=== PATIENT | male | born 1965 | race Caucasian/White ===

== ENCOUNTER 2016-09-15 19:30 | Emergency (ER) | payer OTHER ==
[~2016-09-15] VITALS: Ht 182.9 cm; Wt 97.7 kg
[~2016-09-15 19:30] MED LIST: ACET325T51 PO; CHOL10008 PO; CYAN500T53 SL; DEX1 PO; DOCU250C2 PO; LACT1CAP65 PO; LISI1TAB9 PO; METF500T4 PO; MULT-1018 PO; ONDA-53 PO; PANT40TA3 PO; SERT50TA PO; SULF1TAB7 PO; [UNRECOGNIZED DRUG - CODE] PO
[2016-09-15 19:46] VITALS: BP 149/87; PULSE 79; RESP 17; O2SAT 96
--- NOTE | 2016-09-15 20:03 | ED.REPORT ---
HPI-General Illness Date of Service Sep 15, 2016 ED Provider: Dr. Gordon Pt is a 51 y/o male w/ a hx of glioblastoma multiforme on chemo, DM, HTN, presenting to the ED with his c/o ongoing nausea and vomiting due to chemotherapy. The patient underwent a round of chemo August 24- and since then has been experiencing nausea and vomiting. His only request today is that we can give him some IV fluids today to combat his dehydration. He is scheduled for another MRI in the near future to assess disease progression. He has no other symptoms or new neurological deficits at this time. Oncologist: Sachin Nursing Notes Stated Complaint: DEHYDRATED FROM CHEMO Chief Complaint: General Complaint Nursing Notes Reviewed: Yes Allergies: Coded Allergies: No Known Allergies (Unverified , 05/11/16) Scheduled Cholecalciferol (Vitamin D3) (Vitamin D3) 1,000 Unit Tab.chew 1,000 UNIT PO DAILY Cyanocobalamin (Vitamin B-12) (Vitamin B-12) 500 Mcg Tab.subl 500 MCG SL DAILY Dexamethasone (Dexamethasone) 1 Mg Tab 2 MG PO BID Lactobacillus Acidophilus (Probiotic) 1 Each Capsule 1 EACH PO DAILY Lisinopril / HCTZ 20-12.5 mg (Lisinopril / HCTZ 20-12.5 mg) 1 Each Tablet 1 EACH PO DAILY Metformin (Metformin) 500 Mg Tablet 500 MG PO DAILY Multivitamin (Multi Vitamin Daily) 1 Each Tablet 1 EACH PO DAILY Ondansetron (Ondansetron) 4 Mg Tablet 4 MG PO q4hrs prn Pantoprazole DR (Pantoprazole DR) 40 Mg Tablet.dr 40 MG PO DAILY Sertraline HCl (Zoloft) 50 Mg Tablet 50 MG PO DAILY Sulfamethoxazole/Trimeth 800-160 mg (Bactrim DS) 1 Each Tablet 1 TABLET PO DAILY Temozolomide (Temodar) 100 Mg Capsule 350 MG PO QD DYS [id number] Scheduled PRN Acetaminophen (Acetaminophen) 325 Mg Tablet 650 MG PO Q4H PRN PRN For Pain Docusate Sodium (Docusate Sodium) 250 Mg Capsule 250 MG PO DAILY PRN PRN For Constipation General Time Seen by MD: 20:02 Chief Complaint Vomiting Hx Obtained From: Patient Arrived By: Walk-in Sudden in Onset?: No Onset Occurred: More than a week ago... 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 He has three grown up children, two daughters and one son between ages 22 and 28. Alcohol Use: Denies alcohol use Drug Use: Denies drug use Other Social History: Ambulatory Status Independent Review of Systems Full Review of Systems Constitutional: Denies: Chills, Fever Respiratory: Denies: Non-productive cough, Shortness of breath Cardiovascular: Denies: Chest pain, Dyspnea on exertion GI: Reports: Nausea, Vomiting, Denies: Abdominal pain Complete sys rev & neg: except as marked. Physical Exam Vital Signs Vital Signs Date Time Temp Pulse Resp B/P Pulse Ox O2 Delivery O2 Flow Rate FiO2 09/15/16 22:05 36.9 87 16 159/91 97 Room Air 09/15/16 19:46 36.7 79 17 149/87 96 Room Air Initial VS: Reviewed, Vital signs normal Head / Eyes: Atraumatic, Normocephalic, PERRL ENT: Conjunctiva normal, No scleral icterus Neck: Supple, Full range of motion Respiratory: Breath sounds normal, Clear to auscultation, No respiratory distress Cardiovascular: Regular rate & rhythm, Heart sounds normal, Intact distal pulses Abdomen / GI: Soft, Non-tender Extremities: Vascular intact, Neuro intact, No swelling Skin: Warm, Dry, No cyanosis Neurologic: Alert, Oriented, Nonfocal Psychiatric: Mood/affect normal, Behavior normal, Normal thought content General/Constitutional: Awake, Alert, No acute distress, Cooperative, Not toxic appearing Distress / Hydration: Positive: Dehydration mild ENT: Atraumatic, Airway patent Mouth: Positive: Mucous membranes dry Interpretation & Diagnostics Lab Results Interpretation Test 09/15/16 20:20 Hold Purple Top Tube Received (Received) Hold Bovina Top Tube Received (Received) Re-Eval/Medical Decision Med Decision/Clinical Course 51-year-old male history of clear last normal deformity on chemotherapy presenting with nausea vomiting requesting hydration. He does not want any labs or other workup. He was given 2 L normal saline and Zofran and felt much better. He still declines any labs or further workup. He has a repeat MRI scheduled for Wednesday to evaluate the progress of his glioblastoma multiforme. They are considering continuing chemotherapy and other interventions. Counseled him extensively that there may be other causes for his nausea and vomiting but he does not want any further workup on this time. He will return immediately should he change his mind on this issue. Time of Eval: 20:22 Re-Evaluation/Progress Note: Declining labs at this time. Time of Eval: 21:25 Re-Evaluation/Progress Note: Pt rechecked. Feeling better. Still declining labs. Time of Eval: 21:58 Re-Evaluation/Progress Note: Pt rechecked. Informed pt of plan for discharge. Pt understands and agrees with plan for discharge. F/U instructions and RTER warnings given. All questions addressed. Counseled Regarding: Diagnosis, Lab results, Need for follow-up, When/why to return to ED Discharge & Departure Primary Impression: Nausea and vomiting Vomiting type: unspecified Vomiting Intractability: non-intractable Qualified Code: R11.2 - Nausea with vomiting, unspecified Additional Impression: Dehydration Disposition: Home Discharge Condition All VS Reviewed: Yes Condition: Stable Patient Instructions: Acute Nausea and Vomiting (ED), Dehydration (ED) Additional Instructions: You were given IV fluids and Zofran today for your dehydration. You declined labs today. Keep the scheduled MRI. Return to the emergency department if you wish to have further evaluation or you experience new or worsening symptoms. Follow-up with your primary care doctor and oncologist later this week or early next week. Referrals: Rio Harrison MD (PCP) Fili Rice MD Attestation Portions of this note were transcribed by David Christine. I, Dr. Gordon personally performed the history, physical exam and medical decision-making; I reviewed and confirmed the accuracy of the information in the transcribed note. Signed by Samantha Schwartz, 09/15/16 - 2099 copies to: Fili Rice MD; Rio Harrison MD, Ben M MD Sep 15, 2016 20:03 DAVID CHRISTINE Sep 15, 2016 20:18
[2016-09-15] MEDS ORDERED: 0.9% Sodium Chloride 1,000 ML IV ONE ×2 (20:20→21:15)
[2016-09-15] MEDS: Ondansetron 2 mg/mL 2 mL Inj IVPUSH PRN ×2 (20:28→20:55)
[2016-09-15 22:05] VITALS: BP 159/91; PULSE 87; RESP 16; O2SAT 97
== END 2016-09-15 22:06 | disposition home or self-care (01) ==
LOC: SED 19:30
DX: R11.2 Nausea with vomiting, unspecified (principal); E86.0 Dehydration; I10 Essential (primary) hypertension; E11.9 Type 2 diabetes mellitus without complications; Z85.841 Personal history of malignant neoplasm of brain; Z92.21 Personal history of antineoplastic chemotherapy
CPT/HCPCS: 96361; 96374; 99284; J2405; J7030

== ENCOUNTER 2016-09-22 10:22 | Inpatient (IN) | payer OTHER ==
[~2016-09-22] VITALS: Ht 182.9 cm; Wt 96.4 kg
[2016-09-22 10:29] VITALS: BP 164/96; PULSE 80; RESP 16; O2SAT 95
--- NOTE | 2016-09-22 10:29 | ED.REPORT ---
HPI-General Illness Date of Service Sep 22, 2016 ED Provider: Kyle Laboy Patient is a 51 year old male with a recently diagnosed glioblastoma multiforme , HTN, and DM who presents to the ED via EMS for altered mental status onset a week ago. Per , associated symptoms include frequent falls, increased weakness, trouble speaking, headaches, and increased confusion. He has been nauseous and dry heaving more lately. Per , eh is not experiencing fever, cough, or any other symptoms. He mostly answers yes or no and does not follow commands except to open his eyes. He takes Lisinopril, Dexamethasone (4mg) and metformin daily. He has been taking antibiotics since April when he started radiation therapy. He does 5 days on and 23 days off of Temodar. His last dose was the 28 of August. Patient has been given Tylenol for headaches. Patient's dose of sertraline was increased on the 28 of August. Nursing Notes Stated Complaint: INCREASED CONFUSION/MULTIPLE FALLS Chief Complaint: Neuro Symptoms/ Deficits Nursing Notes Reviewed: Yes Allergies: Coded Allergies: No Known Allergies (Unverified , 05/11/16) Scheduled Cholecalciferol (Vitamin D3) (Vitamin D3) 1,000 Unit Tab.chew 1,000 UNIT PO DAILY Cyanocobalamin (Vitamin B-12) (Vitamin B-12) 500 Mcg Tab.subl 500 MCG SL DAILY Dexamethasone (Dexamethasone) 1 Mg Tab 2 MG PO BID Lactobacillus Acidophilus (Probiotic) 1 Each Capsule 1 EACH PO DAILY Lisinopril / HCTZ 20-12.5 mg (Lisinopril / HCTZ 20-12.5 mg) 1 Each Tablet 1 EACH PO DAILY Metformin (Metformin) 500 Mg Tablet 500 MG PO DAILY Multivitamin (Multi Vitamin Daily) 1 Each Tablet 1 EACH PO DAILY Ondansetron (Ondansetron) 4 Mg Tablet 4 MG PO q4hrs prn Pantoprazole DR (Pantoprazole DR) 40 Mg Tablet.dr 40 MG PO DAILY Sertraline HCl (Zoloft) 50 Mg Tablet 50 MG PO DAILY Sulfamethoxazole/Trimeth 800-160 mg (Bactrim DS) 1 Each Tablet 1 TABLET PO DAILY Temozolomide (Temodar) 100 Mg Capsule 350 MG PO QD DYS [id number] Scheduled PRN Acetaminophen (Acetaminophen) 325 Mg Tablet 650 MG PO Q4H PRN PRN For Pain Docusate Sodium (Docusate Sodium) 250 Mg Capsule 250 MG PO DAILY PRN PRN For Constipation General Time Seen by MD: 10:29 Chief Complaint Altered mental status Hx Obtained From: EMS Arrived By: Ambulance Sudden in Onset?: Yes Onset Occurred: 1 - 4 hours ago Symptom Duration: Since onset Past Medical History Past Medical History Notes: Oncologist: Sachin Past Medical History Glioblastoma multiforme DM HTN Past Surgical History Denies Smoking History Never Smoker Social History 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 He has three grown up children, two daughters and one son between ages 22 and 28. Alcohol Use: Denies alcohol use Drug Use: Denies drug use Other Social History: Ambulatory Status Independent Review of Systems +frequent falls Unable to Obtain ROS Patient condition, Mental status Physical Exam Vital Signs Vital Signs Date Time Temp Pulse Resp B/P Pulse Ox O2 Delivery O2 Flow Rate FiO2 09/22/16 10:29 36.6 80 16 164/96 95 Room Air Initial VS: Reviewed, Vital signs abnormal Head / Eyes: Atraumatic, Normocephalic Neck: Full range of motion Respiratory: Breath sounds normal, Clear to auscultation, No respiratory distress Cardiovascular: Regular rate & rhythm, Heart sounds normal, Intact distal pulses Abdomen / GI: Soft, Non-tender Extremities: Vascular intact, Neuro intact Skin: Warm, Dry Alertness: Positive: Confused, Somnolent inappropriate responses to basic questions Neurologic: No motor deficits, No sensory deficits, CN II - XII intact Mental Status: Positive: Confused, Somnolent Interpretation & Diagnostics Lab Results Interpretation Result Diagram: 09/22/16 1022 09/22/16 1022 Test 09/22/16 10:22 09/22/16 10:35 09/22/16 12:40 White Blood Count 12.5th/mm3 (3.8-10.1) Red Blood Count 4.10mil/mm3 (4.40-5.80) Hemoglobin 12.6g/dL (13.8-17.2) Hematocrit 37.8% (41.0-50.0) Mean Corpuscular Volume 92.2fL (81-100) Mean Corpuscular Hemoglobin 30.7pg (27.0-35.0) Mean Corpuscular Hemoglobin Concent 33.3% (32.0-37.0) Red Cell Distribution Width 12.8% (12.3-15.4) Platelet Count 377bil/L (150-400) Neutrophils (%) (Auto) 88.4% (40-74) Lymphocytes (%) (Auto) 4.1% (14-46) Monocytes (%) (Auto) 5.7% (4-12) Eosinophils (%) (Auto) 0% (0-5) Basophils (%) (Auto) 0.2% (0-3) Prothrombin Time 10.4sec (8.1-12.5) Prothromb Time International Ratio 0.97ratio Sodium Level 131mEq/L (134-144) Potassium Level 3.3mEq/L (3.5-5.2) Chloride Level 92mEq/L (97-108) Carbon Dioxide Level 18mmol/L (18-29) Blood Urea Nitrogen 10mg/dL (6-24) Creatinine 0.77mg/dL (0.76-1.27) Estimat Glomerular Filtration Rate 113mL/min (>59) Glucose Level 158mg/dL (60-99) Calcium Level 9.1mg/dL (8.5-10.1) Magnesium Level 1.7mg/dL (1.6-2.6) Total Bilirubin 0.4mg/dL (0.0-1.2) Aspartate Amino Transf (AST/SGOT) 14U/L (0-50) Alanine Aminotransferase (ALT/SGPT) 24U/L (0-44) Alkaline Phosphatase 46U/L (25-150) Total Protein 6.9g/dL (6.4-8.4) Albumin 4.2g/dL (3.4-5.0) Ammonia 24ug/dL (18-53) CT Head Interpretation IMPRESSION: Diffuse widespread, poorly defined hyperdensities in the region of the splenium of the corpus callosum, and posterior temporal occipital lobes. This could reflect post therapy changes and calcifications given the appearance of the gradient echo sequences on the prior MR studies however without more recent head CT comparison studies, acute hemorrhage or hemorrhagic tumor cannot be excluded. Recommend close clinical correlation and at minimum followup with repeat head CT in 6 hours (shorter if neurological examination warrants). Findings were immediately and personally telephoned to Dr. Laboy in the emergency department 8/1/17 1152 hrs. Dictated by: Tr Davison M.D. on 09/22/2016 at 11:38 Approved by: Tr Davison M.D. on 09/22/2016 at 11:54 Study: Head CT no contrast Interpretation / Wet Read by: Interpret - Radiologist, Discussed w radiologist Re-Eval/Medical Decision Med Decision/Clinical Course Findings concerning for worsening edema in the brain versus other pathology. Previous x-ray and urinalysis were within normal limits within the last 2 days. Changes in no condition given the acute decompensation for discharge. We will admit begin IV steroids and hopefully improvement. Time of Eval: 12:02 Re-Evaluation/Progress Note: Rechecked patient. Discussed pt's case with . Time of Eval: 12:49 Re-Evaluation/Progress Note: Discussed plan for admission. Patient's family understands and agrees with plan. All questions addressed at this time. Consultation #1: Referral / Consult Name: Tr Davison MD Call Returned at: 11:45 Note: Discussed pt's case and CT with radiology. Consultation #2: Referral / Consult Name: Willy Medrano MD Call Returned at: 12:43 Note: Discussed pt's case with rad/onc. Suggests pt needs MRI. Start pt on dexamethasone 8 mg BID. Pt has known unresectable tumor. Reccomends admit and hem/onc consult. Consultation #3: Referral / Consult Name: Pete Benjamin MD Call Returned at: 13:13 Freezer Person: Agrees with eval, Agrees with plan Note: Discussed pt's case. Will consult. Hold Temodar. Consultation #4: Referral / Consult Name: Nikita Thompson DO Call Returned at: 13:15 Note: Discussed pt's case. Accepts admit Counseled Regarding: Diagnosis, Lab results, Need for admission Discharge & Departure Primary Impression: Altered level of consciousness Additional Impression: Glioblastoma multiforme Disposition: ADMITTED TO HOSPITAL Discharge Condition All VS Reviewed: Yes Condition: Stable Referrals: Rio Harrison MD (PCP) Pingibe Attestation Portions of this note were transcribed by Davidson Macedo. I, Dr. Laboy personally performed the history, physical exam and medical decision-making; I reviewed and confirmed the accuracy of the information in the transcribed note. Signed by: Samantha Smith, 09/22/16 copies to: Rio Harrison MD, Timothy S DO Sep 22, 2016 10:29 DAVIDSON MACEDO Sep 22, 2016 10:48
[2016-09-22] MEDS ORDERED: 0.9% Sodium Chloride 1,000 ML IV ONE (10:44)
[2016-09-22 10:55] LABS: BASOPHILS % (AUTO) 0.2 % (0-3); EOSINOPHILS % (AUTO) 0 % (0-5); MONOCYTES % (AUTO) 5.7 % (4-12); Mean Corpuscular Hemoglobin 30.7 pg (27.0-35.0); Mean Corpuscular Volume 92.2 fL (81-100); NEUTROPHILS % (AUTO) 88.4 % (40-74); Platelet Count 377 bil/L (150-400)
[2016-09-22 11:03] LABS: INR 0.97 ratio
[2016-09-22 11:06] LABS: Magnesium 1.7 mg/dL (1.6-2.6)
--- NOTE | 2016-09-22 11:55 | DRSVH ---
PROCEDURE: CT BRAIN WITHOUT CONTRAST ([id number]) INDICATIONS: brain ca, frequent falls, decreased loc TECHNIQUE: Noncontrast 4.5 mm thick angled axial sections acquired from the foramen magnum to the vertex, with c oronal reformats. COMPARISON: [facility], MR, MR BRAIN W&WO CON, 07/24/2016, 8:26. [facility], CT, CT JETER, 05/08/2016, 11:39. [facility], MR, MR BRAIN W&WO CON, 09/18/2016, 11:17. [facility], CT, CT BRAIN WO CON, 04/23/2016, 10:18. FINDINGS: Image quality: Excellent. CSF spaces: Basal cisterns are patent. No extra-axial fluid collections. Ventricles are normal in size and shape. Brain: No midline shift. Multiple ill-defined hyperdensities are seen involving the posterior splen ium of the corpus callosum and posterior bilateral parietal occipital lobes. These correspond to area s of signal void on the prior study dated 09/18/16, and the previously described area of tumor. Mejia-white matter interface is normal. Skull and face: Calvarium and visualized facial bones are intact, without suspicious lesions. Sinuses: Visualized sinuses and mastoids are clear. IMPRESSION: Diffuse widespread, poorly defined hyperdensities in the region of the splenium of the corpus callosu m, and posterior temporal occipital lobes. This could reflect post therapy changes and calcifications given the appearance of the gradient echo sequences on the prior MR studies however without more rec ent head CT comparison studies, acute hemorrhage or hemorrhagic tumor cannot be excluded. Recommend c lose clinical correlation and at minimum followup with repeat head CT in 6 hours (shorter if neurolog ical examination warrants). Findings were immediately and personally telephoned to Dr. Laboy in [facility] emergency department 09/22/16 1152 hrs. Dictated by: Tr Davison M.D. on 09/22/2016 at 11:38 Approved by: Tr Davison M.D. on 09/22/2016 at 11:54
[2016-09-22] MEDS ORDERED: Dexamethasone 4 mg/mL Inj IVPUSH ONE (12:45)
[2016-09-22] MEDS: 0.9% Sodium Chloride 1,000 ML IV SCH (13:15)
[2016-09-22 14:50] VITALS: BP 167/97; PULSE 86; RESP 13; O2SAT 95
[2016-09-22] MEDS ORDERED: Polyethylene Glycol (PEG) 17 Gm Powder PO PRN (14:50)
[2016-09-22] MEDS ORDERED: Alum-Mag Hydrox-Simeth 30 mL Suspension PO PRN (14:50)
--- NOTE | 2016-09-22 15:13 | PCM.HPMED ---
Subjective Date of Service Sep 22, 2016 Primary Provider: Admitting Physician: Eron Roper MD Primary Care Physician: Rio Harrison MD Attending Physician: Eron Roper MD Chief Complaint: Confusion; nausea/vomiting History of Present Illness: 51-year-old male with history of hypertension and diabetes, who is also undergoing treatment for glioblastoma multiform diagnosed in March of this year presents to emergency department due to persistent nausea and vomiting and confusion that worsened acutely yesterday. Patient is seen by our oncology group and has completed IV chemotherapy and radiation, as currently on Temodar. Per the patient's gives the whole history, the patient has had a steady neurological decline over the last 3 weeks with increase nausea and vomiting and dry heaves. She states confusion worsened yesterday and has been unable to follow directions since that time. Patient is usually able to walk with a walker but is currently not manageable to ambulate. Patient was seen yesterday at his oncologist office and was told that the tumor stable. He was given fluids and Zofran for nausea and vomiting at that time as did not seem to work for the patient's . On the way home he began vomiting again. denies that the patient's having fever or chills, complaining of belly or chest pain, or any associated headache or shortness of breath. [facility] emergency department could not exclude an acute hemorrhage or hemorrhagic tumor requested follow-up MRI which was done and is currently pending. Patient does have a leukocytosis with a left shift. Review of Systems: Complete review of systems performed; pertinent positives and negatives per history of present illness, all other systems reviewed and are negative Allergies Coded Allergies: No Known Allergies (Unverified , 05/11/16) Home Medications Cholecalciferol (Vitamin D3) (Vitamin D3) 1,000 Unit Tab.chew 1,000 UNIT PO DAILY Cyanocobalamin (Vitamin B-12) (Vitamin B-12) 500 Mcg Tab.subl 500 MCG SL DAILY Dexamethasone (Dexamethasone) 1 Mg Tab 2 MG PO BID Lactobacillus Acidophilus (Probiotic) 1 Each Capsule 1 EACH PO DAILY Lisinopril / HCTZ 20-12.5 mg (Lisinopril / HCTZ 20-12.5 mg) 1 Each Tablet 1 EACH PO DAILY Metformin (Metformin) 500 Mg Tablet 500 MG PO DAILY Multivitamin (Multi Vitamin Daily) 1 Each Tablet 1 EACH PO DAILY Ondansetron (Ondansetron) 4 Mg Tablet 4 MG PO q4hrs prn Pantoprazole DR (Pantoprazole DR) 40 Mg Tablet.dr 40 MG PO DAILY Sertraline HCl (Zoloft) 50 Mg Tablet 50 MG PO DAILY Sulfamethoxazole/Trimeth 800-160 mg (Bactrim DS) 1 Each Tablet 1 TABLET PO DAILY Temozolomide (Temodar) 100 Mg Capsule 350 MG PO QD DYS [id number] Acetaminophen (Acetaminophen) 325 Mg Tablet 650 MG PO Q4H PRN PRN For Pain Docusate Sodium (Docusate Sodium) 250 Mg Capsule 250 MG PO DAILY PRN PRN For Constipation PMH Glioblastoma multiforme DM HTN Surgical History None reported Family History No history of cardiac disease or glioblastoma Social History Hx Alcohol Use: No Hx Substance Use: No Hx Tobacco Use: No Smoking Status: Never Smoker Living Arrangement: with Family Exam Vital Signs Vital Sign - Last Date Time Temp Pulse Resp B/P Pulse Ox O2 Delivery O2 Flow Rate FiO2 09/22/16 14:54 36.6 09/22/16 14:50 86 13 167/97 95 Room Air Exam General: Confused, appears older than stated age HEENT: Pupils reactive, unable to assess extraocular motors Lymph: No lymphadenopathy Cardio: Regular rate and rhythm Respiratory: CTA bilaterally, no wheezes, no crackles Abdomen: Soft, positive bowel sounds, nontender, nondistended Extremities: No edema, sensation intact Psych: Confused and disoriented; Neuro: Reflexes in lower extremities decreased, appropriate Babinski on right, nonreactive on left Skin: No rash Lab and Diagnostics Result Diagram: 09/22/16 1022 09/22/16 1022 X-Rays, CTs and MRIs Brain CT Diffuse widespread, poorly defined hyperdensities in the region of the splenium of the corpus callosum, and posterior temporal occipital lobes. This could reflect post therapy changes and calcifications given the appearance of the gradient echo sequences on the prior MR studies however without more recent head CT comparison studies, acute hemorrhage or hemorrhagic tumor cannot be excluded. Recommend close clinical correlation and at minimum followup with repeat head CT in 6 hours (shorter if neurological examination warrants). Findings were immediately and personally telephoned to Dr. Laboy in the emergency department 09/22/16 1152 hrs. Dictated by: Tr Davison M.D. on 09/22/2016 at 11:38 Brain MRI Pending Assessment & Plan 51-year-old male with 3 weeks of declining function who is currently unable to follow commands or oriented to himself, present with persistent nausea and vomiting and concern for increased intra-cranial pressure with pending MRI. Acute confusion in the setting of glioblastoma; present on admission; ongoing -Per oncology note, tumor appears stable and the patient is on Temodar; could be due to increased cerebral edema or possibly post-ictal -Home health was set up by oncology to help with home care -Dr. Spicer spoke with the oncology office and updated them on current condition; they recommended methylprednisone -MRI is pending at CT was indeterminate for possible hemorrhage -If MRI is positive and prednisone is ineffective for nonhemorrhagic cerebral edema, recommended hospice. -Family does not currently want to discuss with palliative -Given methylprednisone in ED -Lactic acid. if elevated will consider EEG -Will continue Leukocytosis with confusion; present on admission; ongoing -Presents with WBC > 12k; no other signs of sepsis -No reported fevers, cough, chills; does have ?new incontinence -UA ordered -Procalcitonin ordered -CXR ordered Nausea/vomiting; present on admission; ongoing -Chronic issue that seems to flare up; could be related to chemo or to increased cerebral pressure; -MRI pending -Harikaan did not work -Compazine for control Anion gap metabolic acidosis; present on admission; ongoing -Could be due to developing sepsis or lactic acidosis, among others -wbc mildly elevated -Procal normal -Lactic acid pending -see above for leukocytosis Diabetes mellitus; present on admission; ongoing -hold metformin -diabetic diet -speech eval -will follow for insulin therapy Hypertension; present on admission; ongoing -continue home antihypertensives (lisinopril) Inpatient disposition; Admitted to general medical floor with expected LOS > 2 midnights due to severity of presentation, duration of treatment, and risk of adverse events DNR/I Pain Evaluation: Adequate Pain Control VTE Mechanical Devices: Intermittant Pneumatic CD Resuscitation Status: DNR/DNI:Do Not Resuscitate/Intubate Nikita Thompson DO Sep 22, 2016 15:13
--- NOTE | 2016-09-22 15:25 | DRSVH ---
PROCEDURE: MRI BRAIN WITH AND WITHOUT CONTRAST ([id number]) INDICATIONS: ALOC, known Glioblastoma TECHNIQUE: Noncontrast axial T1 spin echo, axial T2 fast spin echo, sagittal and axial FLAIR, coronal T2 fast sp in echo, axial gradient echo, axial diffusion and ADC through the brain. After the administration of contrast, axial and coronal T1 spin echo with fat saturation through the brain. COMPARISON: [facility], MR, MR BRAIN W&WO CON, 07/24/2016, 8:26. [facility], MR, MR BRAIN W&WO CON, 05/14/2016, 12:52. [facility], MR, MR BRAIN W&WO CON, 09/18/2016, 11:17. FINDINGS: Image quality: There are motion artifacts. CSF spaces: Basal cisterns are patent. No extra-axial fluid collections. Ventricles are normal in size and shape. Brain: Again noted is an irregular mass with heterogeneous enhancement involving the splenium of cor pus callosum and adjacent parietal occipital lobes, unchanged in size. There is susceptibility artifa cts within the mass, consistent with intratumoral bleed or constipation. There is vasogenic edema wit hin and adjacent to the mass. There is marked white matter T2 hyperintensity in the posterior parieta l lobes bilaterally, likely related to post radiation change. No midline shift. There is mild cerebr al volume loss for age. There is mild periventricular white matter chronic small vessel ischemic marlo nge. The brainstem appears normal. Diffusion-weighted images demonstrate no acute ischemic insults. No chronic ischemic insults. Normal intravascular flow voids are present. Skull and face: Calvarial marrow is normal in signal. Orbits appear normal. Sinuses: Sinuses appear clear. Fluid in the right mastoids has decreased. There is mucus retention material or in the left maxillary and sphenoid sinuses. IMPRESSION: 1. Stable appearance of an irregular mass with heterogeneous enhancement involving the splenium of co rpus callosum and adjacent parieto-occipital lobes with vasogenic edema and intratumoral bleed or tod cification. The findings are consistent with known glioblastoma. 2. No acute intracranial abnormalities. 3. Mild cerebral volume loss and periventricular white matter chronic small vessel ischemic changes. There is also likely post radiation change in the posterior white matter. 4. Mucous retention material or polyps in the left maxillary and sphenoid sinuses. Dictated by: Getachew Rivera M.D. on 09/22/2016 at 14:07 Approved by: Getachew Rivera M.D. on 09/22/2016 at 14:23
--- NOTE | 2016-09-22 16:05 | NUR ---
Admit Pt admitted to [facility] rm [id number] via Ed, report received from Minnie Costa RN. Pt arrived via stretcher and was moved over via slider board, pt is confused, unable to follow command, and is somnolent. Family at bedside answering questions for pt.
[2016-09-22 16:06] VITALS: BP 170/92; PULSE 72; RESP 20; O2SAT 96
[2016-09-22] MEDS ORDERED: ProchlorPERazine 5 mg/mL 2 mL Inj IVPUSH PRN (16:50)
[2016-09-22] MEDS ORDERED: Potassium Chloride Inj 20 MEQ in Dextrose 5% 250 ML IV ONE (17:00)
--- NOTE | 2016-09-22 18:18 | DRSVH ---
PROCEDURE: X-RAY CHEST ONE VIEW, PORTABLE ([id number]) INDICATIONS: pneumonia TECHNIQUE: One view of the chest was acquired. COMPARISON: None. FINDINGS: Surgical changes and devices: None. Lungs and pleura: No pleural effusions or pneumothorax. Lungs are clear. Mediastinum: Mediastinal contours appear normal. Heart size is normal. Bones and chest wall: No suspicious bony lesions. Overlying soft tissues appear unremarkable. IMPRESSION: Reduced inspiratory volume, heart size within normal limits for this is taken into accou nt. There is stranding at the retrocardiac left lower lobe but this is in the setting of potential f or atelectasis. Pneumonia has not been entirely excluded but is considered relatively unlikely at th e left lung base. Dictated by: Tu Guevara M.D. on 09/22/2016 at 18:15 Approved by: Tu Guevara M.D. on 09/22/2016 at 18:16
[2016-09-22 21:24] VITALS: BP 177/102; PULSE 88; RESP 18; O2SAT 95
[2016-09-22 23:08] VITALS: BP 165/107; PULSE 87
[2016-09-22] MEDS ORDERED: Nitroglycerin 2% 1 Gm Ointment TOPICAL SCH (23:45)
--- NOTE | 2016-09-23 00:21 | PROG NOTE ---
[address] [address] PROGRESS NOTE PATIENT: UDAY SCHMIDT : 1965 MR#: [id number] ADMIT: 09/22/2016 JOB ID: [id number] DATE: 09/22/2016 Please refer to the earlier half of this dictation. It was cut off part way through. PROGRESS NOTE: I am not sure that the part about my conversation with his got in to the dictation because the connection was lost. I spoke with his , Leatha, this is a patient with progression of symptoms and a history of grade 4 glioblastoma, currently on Temodar maintenance, who has a stable MRI, but clinically is progressing. She indicated that the patient does not wish to have further chemotherapy although we did discuss the options for that including bevacizumab and other chemotherapy agents and that he wants to maintain quality of life. Therefore, our plan is to see if he responds to dexamethasone before making any further decisions on management of his care. She is open to the idea of hospice should he not improve. Please see the first half of this dictation which was cut off.
--- NOTE | 2016-09-23 01:32 | PROG NOTE ---
[address] [address] PROGRESS NOTE PATIENT: UDAY SCHMIDT : 1965 MR#: [id number] ADMIT: 09/22/2016 JOB ID: [id number] DATE: 09/22/2016 REFERRING PROVIDER: Dr. Haas, emergency department. REASON FOR REFERRAL: A 51-year-old man with relapsed glioblastoma diagnosed in March 2016, now with altered mental status, increased weakness, headaches, confusion, and inability to care at home. DIAGNOSES: 1. 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 He is now on maintenance Temodar five days out of each month; recently escalated dose. 2. Hypertension. 3. Diabetes. HISTORY OF PRESENT ILLNESS: Patient presented in April 2016 after diagnosis was made by Dr. Dobson and Dr. Rothman of G4 T2 N0, stage IV, glioblastoma involving the corpus callosum and the left occipital lobe. He had presented with neurologic difficulties including disorientation and difficulty writing sentences. He is a [employer] and is very well read and writes a lot, so this is a dramatic change. Dr. Rothman performed the biopsy on April 23, 2016, with pathology showing glioblastoma multiforme, IDH1-2 negative, MGMT was unmethylated, which is the less favorable prognostic feature. After the stereotactic biopsy, he was treated with Temodar and radiation between May 12 and June 26 and subsequently treated with monthly five days of Temodar. He was recently seen by AGUILA Boland on September 21 and noted to be declining. MRI of the brain on September 18 showed the heterogeneously enhancing mass not significantly changed in size or contour compared to studies in July and April. At that visit, the discussion centered around his declining functional status, the bilateral lower extremity weakness, falls at home, need for a walker, and decreased ability to follow directions: Home health evaluation was discussed, and the possibility of switching over to palliative care was also discussed. He was given low-dose oxycodone 5 mg for head and rib pain. He presented to the emergency department today with a more profound decline, and his was unable to take care of him at home because of the increased weakness, trouble speaking, complete disorientation, and increased confusion and with some nausea and dry heaving as well. PAST MEDICAL HISTORY: As described above. Includes hypertension and diabetes. HOME MEDICATIONS INCLUDE: 1. Cholecalciferol. 2. Cyanocobalamin. 3. Dexamethasone 2 mg b.i.d. 4. Lactobacillus. 5. Lisinopril. 6. Metformin. 7. Multivitamins. 8. Ondansetron. 9. Pantoprazole. 10. Sertraline. 11. Sulfamethoxazole/trimethoprim. 12. Temodar as described above. 13. Acetaminophen. 14. Docusate. Please see medication flow sheet for jeimy, schedules and PRN's He was up to start his Temodar and he is advised to hold that until we can sort out what is going on neurologically with him. Dr. Haas contacted Dr. Medrano, who indicated the patient could have no more radiation therapy and that the major intervention would be to increase his dexamethasone dose, which was done. REVIEW OF SYSTEMS: It is not possible to review the patient's systems at this point in time, because he is unresponsive. He appears awake but unresponsive. His , Muna, is with him today. PHYSICAL EXAMINATION: His vital signs are stable with a temp of 36.3, pulse 72, respiratory rate 12.2, pulse ox 96%. LABORATORY STUDIES: Hematocrit 10.8, platelets 377. Electrolytes: Sodium 131, potassium 3.3, chloride 92, CO2 of 18, BUN 10, creatinine 0.7, gucos eadequate. ALT, AST, alk phos, and bilirubin normal. RECOMMENDATIONS: I spoke with Muna about the case, and she indicated that patient is interested in quality of life, not longevity, and that she understands that he is declining, and that he most likely is showing progression. The MRI was actually performed on this admission, showing stability. Dexamethasone often affords a temporary improvement.. We agreed that we would adjust the dose of dexamethasone to 4 mg q.6 hours for the time being to see if he would respond to that and improve his functional status. We will make further decisions in the next few days including whether second line therapy with bevacizumab with or without chemotherapy would make sense. It would be best if this conversation was with Dr. gonzales, who knows the patient and family well. [facility]
[2016-09-23 03:14] VITALS: BP 173/97; PULSE 79
[2016-09-23] MEDS: 0.9% Sodium Chloride 1,000 ML IV SCH ×3 (04:11→14:17)
[2016-09-23 05:53] VITALS: BP 181/109; PULSE 86; RESP 18; O2SAT 96
--- NOTE | 2016-09-23 06:38 | NUR ---
confusion Pt answers yes to all questions but unable to elaborate. Sleeping intermittently. incontinent of urine. bed alarm on for safety.
--- NOTE | 2016-09-23 07:50 | PCM.PNMED ---
Subjective Date of Service Sep 23, 2016 Subjective Patient currently lying in bed essentially is nonverbal. Exam Vital Signs Vital Sign - Last Date Time Temp Pulse Resp B/P Pulse Ox O2 Delivery O2 Flow Rate FiO2 09/23/16 05:53 36.5 86 18 181/109 96 Room Air Intake and Output 09/22/16 09/22/16 09/23/16 Cumulative From/Thru 15:00 23:00 07:00 09/22/16 16:11 - 09/23/16 06:28 Intake Total 1389 ml 1389 ml Balance 1389 ml 1389 ml Intake Oral 0 ml 0 ml IV Total 1389 ml 1389 ml # Voids 2 2 Exam General: Confused, nonverbal HEENT: Pupils reactive, unable to assess extraocular motors, normocephalic atraumatic, dry mucosa of mouth Cardio: Regular rate and rhythm Respiratory: CTA bilaterally, no wheezes, no crackles Abdomen: Soft, positive bowel sounds, nontender, nondistended Extremities: No edema, sensation intact Psych: Nonverbal and difficult to assess Neuro: He is drowsy and keeps his eyes closed and does not follow verbal commands. Does move extremities with painful stimuli. IVs and Medications Medications Reviewed: Medications were reviewed in detail Lab and Diagnostics Laboratory Tests 72 Hours Test 09/22/16 10:22 09/22/16 10:35 09/22/16 12:40 09/22/16 18:20 White Blood Count 12.5th/mm3 (3.8-10.1) Red Blood Count 4.10mil/mm3 (4.40-5.80) Hemoglobin 12.6g/dL (13.8-17.2) Hematocrit 37.8% (41.0-50.0) Mean Corpuscular Volume 92.2fL (81-100) Mean Corpuscular Hemoglobin 30.7pg (27.0-35.0) Mean Corpuscular Hemoglobin Concent 33.3% (32.0-37.0) Red Cell Distribution Width 12.8% (12.3-15.4) Platelet Count 377bil/L (150-400) Neutrophils (%) (Auto) 88.4% (40-74) Lymphocytes (%) (Auto) 4.1% (14-46) Monocytes (%) (Auto) 5.7% (4-12) Eosinophils (%) (Auto) 0% (0-5) Basophils (%) (Auto) 0.2% (0-3) Prothrombin Time 10.4sec (8.1-12.5) Prothromb Time International Ratio 0.97ratio Sodium Level 131mEq/L (134-144) Potassium Level 3.3mEq/L (3.5-5.2) Chloride Level 92mEq/L (97-108) Carbon Dioxide Level 18mmol/L (18-29) Blood Urea Nitrogen 10mg/dL (6-24) Creatinine 0.77mg/dL (0.76-1.27) Estimat Glomerular Filtration Rate 113mL/min (>59) Glucose Level 158mg/dL (60-99) Calcium Level 9.1mg/dL (8.5-10.1) Magnesium Level 1.7mg/dL (1.6-2.6) Total Bilirubin 0.4mg/dL (0.0-1.2) Aspartate Amino Transf (AST/SGOT) 14U/L (0-50) Alanine Aminotransferase (ALT/SGPT) 24U/L (0-44) Alkaline Phosphatase 46U/L (25-150) Total Protein 6.9g/dL (6.4-8.4) Albumin 4.2g/dL (3.4-5.0) Procalcitonin 0.06ng/mL (0.00-0.08) Thyroid Stimulating Hormone (TSH) 1.130uIU/mL (0.450-4.500) Ammonia 24ug/dL (18-53) Lactic Acid Level 0.9mmol/L (0.4-2.0) Result Diagram: 09/22/16 1022 09/22/16 1022 X-Rays, CTs and MRIs Brain CT Diffuse widespread, poorly defined hyperdensities in the region of the splenium of the corpus callosum, and posterior temporal occipital lobes. This could reflect post therapy changes and calcifications given the appearance of the gradient echo sequences on the prior MR studies however without more recent head CT comparison studies, acute hemorrhage or hemorrhagic tumor cannot be excluded. Recommend close clinical correlation and at minimum followup with repeat head CT in 6 hours (shorter if neurological examination warrants). Findings were immediately and personally telephoned to Dr. Laboy in the emergency department 8/1/17 1152 hrs. Dictated by: Tr Davison M.D. on 09/22/2016 at 11:38 Brain MRI PROCEDURE: MRI BRAIN WITH AND WITHOUT CONTRAST ([id number]) INDICATIONS: ALOC, known Glioblastoma TECHNIQUE: Noncontrast axial T1 spin echo, axial T2 fast spin echo, sagittal and axial FLAIR, coronal T2 fast spin echo, axial gradient echo, axial diffusion and ADC through the brain. After the administration of contrast, axial and coronal T1 spin echo with fat saturation through the brain. COMPARISON: [facility], MR, MR BRAIN W&WO CON, 07/24/2016, 8:26. [facility], MR, MR BRAIN W&WO CON, 05/14/2016, 12:52. [facility], MR, MR BRAIN W&WO CON, 09/18/2016, 11:17. FINDINGS: Image quality: There are motion artifacts. CSF spaces: Basal cisterns are patent. No extra-axial fluid collections. Ventricles are normal in size and shape. Brain: Again noted is an irregular mass with heterogeneous enhancement involving the splenium of corpus callosum and adjacent parietal occipital lobes , unchanged in size. There is susceptibility artifacts within the mass, consistent with intratumoral bleed or constipation. There is vasogenic edema within and adjacent to the mass. There is marked white matter T2 hyperintensity in the posterior parietal lobes bilaterally, likely related to post radiation change. No midline shift. There is mild cerebral volume loss for age. There is mild periventricular white matter chronic small vessel ischemic change. The brainstem appears normal. Diffusion-weighted images demonstrate no acute ischemic insults. No chronic ischemic insults. Normal intravascular flow voids are present. Skull and face: Calvarial marrow is normal in signal. Orbits appear normal. Sinuses: Sinuses appear clear. Fluid in the right mastoids has decreased. There is mucus retention material or in the left maxillary and sphenoid sinuses. IMPRESSION: 1. Stable appearance of an irregular mass with heterogeneous enhancement involving the splenium of corpus callosum and adjacent parieto-occipital lobes with vasogenic edema and intratumoral bleed or calcification. The findings are consistent with known glioblastoma. 2. No acute intracranial abnormalities. 3. Mild cerebral volume loss and periventricular white matter chronic small vessel ischemic changes. There is also likely post radiation change in the posterior white matter. 4. Mucous retention material or polyps in the left maxillary and sphenoid sinuses. Dictated by: Getachew Rivera M.D. on 09/22/2016 at 14:07 Approved by: Getachew Rivera M.D. on 09/22/2016 at 14:23 PROCEDURE: X-RAY CHEST ONE VIEW, PORTABLE ([id number]) INDICATIONS: pneumonia TECHNIQUE: One view of the chest was acquired. COMPARISON: None. FINDINGS: Surgical changes and devices: None. Lungs and pleura: No pleural effusions or pneumothorax. Lungs are clear. Mediastinum: Mediastinal contours appear normal. Heart size is normal. Bones and chest wall: No suspicious bony lesions. Overlying soft tissues appear unremarkable. IMPRESSION: Reduced inspiratory volume, heart size within normal limits for this is taken into account. There is stranding at the retrocardiac left lower lobe but this is in the setting of potential for atelectasis. Pneumonia has not been entirely excluded but is considered relatively unlikely at the left lung base. Dictated by: Tu Guevara M.D. on 09/22/2016 at 18:15 Approved by: Tu Guevara M.D. on 09/22/2016 at 18:16 Assessment & Plan 51-year-old male with 3 weeks of declining function who is currently unable to follow commands or oriented to himself, present with persistent nausea and vomiting and concern for increased intra-cranial pressure with pending MRI. Acute confusion in the setting of glioblastoma; present on admission; ongoing -Per oncology note, tumor appears stable and the patient is on Temodar; could be due to increased cerebral edema or possibly post-ictal -Home health was set up by oncology to help with home care -Dr. Spicer spoke with the oncology office and updated them on current condition; they recommended methylprednisone -MRI is pending at CT was indeterminate for possible hemorrhage -If MRI is positive and prednisone is ineffective for nonhemorrhagic cerebral edema, recommended hospice. -Family does not currently want to discuss with palliative -Given methylprednisone in ED and as per oncology will increase dexamethasone to 4 mg IV every 6 hours -Lactic acid. if elevated will consider EEG -Will continue Leukocytosis with confusion; present on admission; ongoing -Presents with WBC > 12k; no other signs of sepsis -No reported fevers, cough, chills; does have ?new incontinence -UA ordered and is still pending -Procalcitonin was normal -CXR and reveals most likely left lower lobe atelectasis -Today's labs are pending Nausea/vomiting; present on admission; ongoing -Chronic issue that seems to flare up; could be related to chemo or to increased cerebral pressure; -MRI pending -Zoan did not work -Compazine for control Anion gap metabolic acidosis; present on admission; ongoing -Could be due to developing sepsis or lactic acidosis, among others -wbc mildly elevated -Procal normal -Lactic acid was normal -see above for leukocytosis Diabetes mellitus; present on admission; ongoing -hold metformin -diabetic diet -speech eval for swallow -will follow for insulin therapy Hypertension; present on admission; ongoing -At this point is nothing by mouth until swallow evaluation is done -We will initiate IV enalaprilat when necessary systolic blood pressure greater than 165 and/or diastolic blood pressure greater than 95 Inpatient disposition; Admitted to general medical floor with expected LOS > 2 midnights due to severity of presentation, duration of treatment, and risk of adverse events DNR/I VTE Mechanical Devices: Intermittant Pneumatic CD Resuscitation Status: DNR/DNI:Do Not Resuscitate/Intubate Time spent 30 minutes Zora Gagnon MD Sep 23, 2016 07:49
[2016-09-23] MEDS: Dexamethasone 4 mg/mL Inj IVPUSH SCH ×3 (07:58→20:17)
[2016-09-23] MEDS ORDERED: Dexamethasone 4 mg/mL Inj IVPUSH SCH (08:30)
[2016-09-23 09:27] VITALS: BP 162/95; PULSE 80; RESP 20; O2SAT 97
[2016-09-23 09:55] LABS: BASOPHILS % (AUTO) 0.1 % (0-3); EOSINOPHILS % (AUTO) 0.6 % (0-5); MONOCYTES % (AUTO) 6.3 % (4-12); Mean Corpuscular Hemoglobin 30.8 pg (27.0-35.0); Mean Corpuscular Volume 90.3 fL (81-100); NEUTROPHILS % (AUTO) 88.1 % (40-74); Platelet Count 345 bil/L (150-400)
--- NOTE | 2016-09-23 10:43 | NUR ---
Palliative care note D/A: Pt admitted to [facility] on 09/22/16. This worker had received call from pt spouse on Wednesday09/18/16 indicating pt fell twice on 09/17/16, decline in function over August and was to have MRI/oncology visit on Wednesday09/21/16. Spouse noted may want to see OPC dependent on results of decision re: further treatment. Had discussed with Dr. Hernandez who noted perhaps an admission to hospice would be called for if no further treatment. Case discussed in [facility]PC rounds. Jamil from Case Management is making referral to [facility]. Indicate to her that this worker just informed [facility] about cancellation of a planned [facility] open for another pt on Wednesday09/25/16. P: There is not a PC referral for consult. PC able to see if pt/spouse would find this helpful. Aster SWEENEY, CCM
--- NOTE | 2016-09-23 10:51 | NUR ---
HOSPICE INFO VISIT: Called and spoke with Carley at [facility] they will be out tomorrow 09/24/16 at 9AM for Hospice informational visit. also asked to have GAMING DIRECTOR at [facility] called and notified that patient is currently here. Heather was also scheduled to open yesterday 09/22/16 and she would like them updated about patient here in hospital. Updated GAMING DIRECTOR
--- NOTE | 2016-09-23 11:09 | NUR ---
Discomfort Pt appears uncomfortable-frowning and rubbing his head. Isn't responding, moans and shifts around in bed a little. and daughter at bedside. states she would like to transition to comfort measures only. MD notified. Waiting on further orders.
[2016-09-23 12:25] VITALS: PULSE 88; RESP 22
--- NOTE | 2016-09-23 14:53 | NUR ---
spiritual care: rolly Visited with pt and his family who were grateful for assigner's visit. 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 Talked about umang, family and pt's current levels of comfort. Prayed with pt and family before leaving the room. Spiritual care will continue to follow as needed.
[2016-09-23] MEDS: Ondansetron 2 mg/mL 2 mL Inj IVPUSH PRN ×2 (14:58→21:34)
--- NOTE | 2016-09-23 15:44 | NUR ---
Social Work-screening: Data:EMR Reviewed. P tis a 51 y/o male who was admitted on 09/22/16 for ALOC per H&P. Pt's insurance is [employer]! and PCP is [facility]. EMR Reviewed. Pt's readmission score is 5-high risk. SW updated by that order has been placed for Hospice information visit. This has been arranged for tomorrow at 0900, family updated. Family requesting to speak with oncology MAGED Walker. MAGED updated Heather that pt has been admitted to the hospital. [facility] oncology MAGED saw pt and family today, offered support and answered questions. SW to follow up with pt and family when appropriate. SW will continue to follow. Assessment:pt who has supportive family. Plan:Hospice information visit scheduled for tomorrow at 0900. SW will continue to follow. DAVI Herrmann
--- NOTE | 2016-09-23 17:47 | NUR ---
Vomiting/discomfort Pt dry-heaving several times, vomited 1x. Zofran IV administered, effective for 2 hrs. Followed with another PRN Rx. RN requested PRN Ativan, hoping it would help for nausea and pain. LOTS of family and friends in room throughout the day. Will continue to monitor.
--- NOTE | 2016-09-23 18:01 | PCM.ADCARE ---
Advance Care Planning Note Purpose of Encounter: Discussed prognosis and care options Parties in Attendance: and other family members Decisional Capacity: Patient has no decisional capacity and hence is to make decisions Subjective: Patient has progressive symptoms secondary to known glioblastoma and is not responding to increased doses of IV dexamethasone. No other medical issues have been found as source of increasing obtundation. Objective: See progress note from today. Goals of Care Determinations: Comfort Care only Plan: We will proceed with hospice consult CODE STATUS: DO NOT RESUSCITATE DO NOT INTUBATE/comfort care only Time Spent Adv.Care Plannin minutes Adv. Care Plan Documenation: Currently patient has progressive neurological symptoms secondary to glioblastoma and we will proceed with hospice consult to be done in his home. Zora Gagnon MD Sep 23, 2016 18:01
[2016-09-24] MEDS: 0.9% Sodium Chloride 1,000 ML IV SCH ×3 (00:31→20:40)
[2016-09-24] MEDS: Dexamethasone 4 mg/mL Inj IVPUSH SCH ×4 (04:08→22:27)
[2016-09-24 04:14] VITALS: PULSE 82; RESP 24
[2016-09-24 06:18] VITALS: BP 146/97; PULSE 79; RESP 20; O2SAT 94
--- NOTE | 2016-09-24 07:08 | NUR ---
Mentation Pt non-responsive/nonverbal at beginning of shift, appearing to be comfortable. Pt woke during the night, restless, holding head, medicated pt with 1 mg IV morphine. Pt resting in bed after medication admin. Pt woke up in the morning, talking, awake, alert. Pt oriented to self and place, sitting up in bed speaking with his son. Pt denies pain at this time.
[2016-09-24 10:46] LABS: BASOPHILS % (AUTO) 0.1 % (0-3); EOSINOPHILS % (AUTO) 0 % (0-5); MONOCYTES % (AUTO) 5.9 % (4-12); Mean Corpuscular Hemoglobin 30.9 pg (27.0-35.0); Mean Corpuscular Volume 91.8 fL (81-100); NEUTROPHILS % (AUTO) 87.1 % (40-74); Platelet Count 351 bil/L (150-400)
--- NOTE | 2016-09-24 11:08 | NUR ---
spiritual care: follow up Visited with family this morning as pt was being bathed. Family is gathered and supportive. Pt to start hospice as soon as they can open. Spiritual care will continue to follow as needed.
[2016-09-24 11:14] LABS: Magnesium 2.3 mg/dL (1.6-2.6)
--- NOTE | 2016-09-24 13:20 | NUR ---
Social Work-continued d/c planning: Data:EMR reviewed. Pt is on day 2 of hospitalization for ALOC per H&P. Pt is not medically stable. SW updated by Hospice that family has signed consents for services. SW placed a call to Hospice intake to determine opening date. SW awaiting return call from Hospice. SW to update family once this information is known. SW will continue to follow. Assessment:pt who has supportive family. Plan:Pt to discharge home with Hospice services. Family has signed consents with Hospice awaiting open date from Hospice intake. SW to update family once this information is known. SW will continue to follow. DAVI Herrmann Addendum: 09/24/16 at 1751 by TAMARA OLIVAS SW received a call back from [facility] who states they cannot open pt until Wednesday between [facility] to update pt and family tomorrow with this information. DAVI Herrmann
--- NOTE | 2016-09-24 13:52 | PCM.PNMED ---
Subjective Date of Service Sep 24, 2016 Subjective Patient is more arousable and alert today. He is very obtunded yesterday. Exam Vital Signs Vital Sign - Last Date Time Temp Pulse Resp B/P Pulse Ox O2 Delivery O2 Flow Rate FiO2 09/24/16 06:18 79 20 146/97 94 Room Air 09/23/16 09:27 36.8 Intake and Output 09/23/16 09/23/16 09/24/16 Cumulative From/Thru 15:00 23:00 07:00 09/22/16 16:11 - 09/24/16 06:15 Intake Total 1132 ml 1257 ml 3778 ml Output Total 225 ml 225 ml Balance 907 ml 1257 ml 3553 ml Intake Oral 0 ml 0 ml IV Total 1132 ml 1257 ml 3778 ml Output Emesis 225 ml 225 ml # Voids 3 5 # Bowel Movements 0 0 Exam Constitutional middle-aged male who is arousable today and actually can speak coherently. Head: Normocephalic atraumatic Chest: Clear to auscultation Cor: Regular rate and rhythm S1-S2 Abdomen: Soft nontender bowel sounds present Extremities: No pedal edema Neuro: More alert today and oriented 3, he does move all extremities Lab and Diagnostics Result Diagram: 09/24/16 1040 09/24/16 1040 X-Rays, CTs and MRIs Brain CT Diffuse widespread, poorly defined hyperdensities in the region of the splenium of the corpus callosum, and posterior temporal occipital lobes. This could reflect post therapy changes and calcifications given the appearance of the gradient echo sequences on the prior MR studies however without more recent head CT comparison studies, acute hemorrhage or hemorrhagic tumor cannot be excluded. Recommend close clinical correlation and at minimum followup with repeat head CT in 6 hours (shorter if neurological examination warrants). Findings were immediately and personally telephoned to Dr. Laboy in the emergency department 09/22/16 1152 hrs. Dictated by: Tr Davison M.D. on 09/22/2016 at 11:38 Brain MRI PROCEDURE: MRI BRAIN WITH AND WITHOUT CONTRAST ([id number]) INDICATIONS: ALOC, known Glioblastoma TECHNIQUE: Noncontrast axial T1 spin echo, axial T2 fast spin echo, sagittal and axial FLAIR, coronal T2 fast spin echo, axial gradient echo, axial diffusion and ADC through the brain. After the administration of contrast, axial and coronal T1 spin echo with fat saturation through the brain. COMPARISON: [facility], MR, MR BRAIN W&WO CON, 07/24/2016, 8:26. [facility], MR, MR BRAIN W&WO CON, 05/14/2016, 12:52. [facility], MR, MR BRAIN W&WO CON, 09/18/2016, 11:17. FINDINGS: Image quality: There are motion artifacts. CSF spaces: Basal cisterns are patent. No extra-axial fluid collections. Ventricles are normal in size and shape. Brain: Again noted is an irregular mass with heterogeneous enhancement involving the splenium of corpus callosum and adjacent parietal occipital lobes , unchanged in size. There is susceptibility artifacts within the mass, consistent with intratumoral bleed or constipation. There is vasogenic edema within and adjacent to the mass. There is marked white matter T2 hyperintensity in the posterior parietal lobes bilaterally, likely related to post radiation change. No midline shift. There is mild cerebral volume loss for age. There is mild periventricular white matter chronic small vessel ischemic change. The brainstem appears normal. Diffusion-weighted images demonstrate no acute ischemic insults. No chronic ischemic insults. Normal intravascular flow voids are present. Skull and face: Calvarial marrow is normal in signal. Orbits appear normal. Sinuses: Sinuses appear clear. Fluid in the right mastoids has decreased. There is mucus retention material or in the left maxillary and sphenoid sinuses. IMPRESSION: 1. Stable appearance of an irregular mass with heterogeneous enhancement involving the splenium of corpus callosum and adjacent parieto-occipital lobes with vasogenic edema and intratumoral bleed or calcification. The findings are consistent with known glioblastoma. 2. No acute intracranial abnormalities. 3. Mild cerebral volume loss and periventricular white matter chronic small vessel ischemic changes. There is also likely post radiation change in the posterior white matter. 4. Mucous retention material or polyps in the left maxillary and sphenoid sinuses. Dictated by: Getachew Rivera M.D. on 09/22/2016 at 14:07 Approved by: Getachew Rivera M.D. on 09/22/2016 at 14:23 PROCEDURE: X-RAY CHEST ONE VIEW, PORTABLE ([id number]) INDICATIONS: pneumonia TECHNIQUE: One view of the chest was acquired. COMPARISON: None. FINDINGS: Surgical changes and devices: None. Lungs and pleura: No pleural effusions or pneumothorax. Lungs are clear. Mediastinum: Mediastinal contours appear normal. Heart size is normal. Bones and chest wall: No suspicious bony lesions. Overlying soft tissues appear unremarkable. IMPRESSION: Reduced inspiratory volume, heart size within normal limits for this is taken into account. There is stranding at the retrocardiac left lower lobe but this is in the setting of potential for atelectasis. Pneumonia has not been entirely excluded but is considered relatively unlikely at the left lung base. Dictated by: Tu Guevara M.D. on 09/22/2016 at 18:15 Approved by: Tu Guevara M.D. on 09/22/2016 at 18:16 Assessment & Plan 51-year-old male with 3 weeks of declining function who is currently unable to follow commands or oriented to himself, present with persistent nausea and vomiting and concern for increased intra-cranial pressure with pending MRI. Acute confusion in the setting of glioblastoma; present on admission; ongoing -Per oncology note, tumor appears stable and the patient is on Temodar; could be due to increased cerebral edema or possibly post-ictal -Home health was set up by oncology to help with home care -Dr. Spicer spoke with the oncology office and updated them on current condition; they recommended methylprednisone -MRI is pending at CT was indeterminate for possible hemorrhage -If MRI is positive and prednisone is ineffective for nonhemorrhagic cerebral edema, recommended hospice. -Family does not currently want to discuss with palliative -Given methylprednisone in ED and as per oncology will increase dexamethasone to 4 mg IV every 6 hours - Today has improved we will continue with IV high-dose dexamethasone -We will check labs in a.m. Leukocytosis with confusion; present on admission; ongoing -Presents with WBC > 12k; no other signs of sepsis -No reported fevers, cough, chills; does have ?new incontinence -UA ordered and is still pending -Procalcitonin was normal -CXR and reveals most likely left lower lobe atelectasis Nausea/vomiting; present on admission; ongoing -Chronic issue that seems to flare up; could be related to chemo or to increased cerebral pressure; -Zofran did not work well -Compazine for control Anion gap metabolic acidosis; present on admission; ongoing -Could be due to developing sepsis or lactic acidosis, among others -wbc mildly elevated -Procal normal -Lactic acid was normal -see above for leukocytosis Diabetes mellitus; present on admission; ongoing -hold metformin -diabetic diet -speech eval for swallow -will follow for insulin therapy Hypertension; present on admission; ongoing -At this point is nothing by mouth until swallow evaluation is done Inpatient disposition; Admitted to general medical floor with expected LOS > 2 midnights due to severity of presentation, duration of treatment, and risk of adverse events DNR/I, comfort care VTE Mechanical Devices: Intermittant Pneumatic CD Resuscitation Status: DNR/DNI:Do Not Resuscitate/Intubate Time spent 30 minutes Zora Gagnon MD Sep 24, 2016 13:52
--- NOTE | 2016-09-24 16:34 | NUR ---
Evaluation completed. Please go to "Notes" then click on "Assessments and Notes" (bottom left corner of screen). Then select appropriate discipline tab on top of screen.
--- NOTE | 2016-09-24 17:16 | NUR ---
Mentation Mentation improved this shift. Communicating in full sentences with minimal delay and word searching. Frequent cueing required. Reporting no Nausea or pain. Speech eval completed and pt up to EOB for dinner with a multitude of family at bedside.
[2016-09-24 20:59] VITALS: BP 130/82; PULSE 75; RESP 20; O2SAT 95
[2016-09-25] MEDS: Dexamethasone 4 mg/mL Inj IVPUSH SCH ×3 (03:27→13:46)
--- NOTE | 2016-09-25 06:00 | NUR ---
Mentation Pt is alert and oriented to self only, forgetful, confused at times. When asked where he was pt stating he was in an elementary school in [place]. Pt reoriented. Pt c/o headache at beginning of shift, tylenol given by day RN, Pt denies pain upon reassessment, no further c/o pain this shift. Pt up to BSC with 1 person assist, family stating pt's strength has improved. Pt's son at bedside, call light within reach, frequent rounding, andre alarm in place.
[2016-09-25] MEDS: 0.9% Sodium Chloride 1,000 ML IV SCH (08:07)
--- NOTE | 2016-09-25 12:54 | PCM.DIMED ---
Discharge Instructions Date of Service Sep 25, 2016 Dates of Hospitalization Sep 22, 2016 at 14:46 Discharge Diagnosis Discharge Diagnosis Acute encephalopathy secondary glioblastoma responsive to increased dexamethasone Diet Discharge Diet: Other (As tolertaed with mechanical soft foods,cut foods) Patient Instructions Follow-up Provider: Fili Rice MD Follow-up with PCP in: Other (as needed and previously recommended) Zora Gagnon MD Sep 25, 2016 12:54
[2016-09-25] MEDS ORDERED: PROC25SU30 RC (13:05)
[2016-09-25] MEDS ORDERED: DEX1 PO (13:05)
[2016-09-25] MEDS ORDERED: PROC-4 PO (13:05)
[2016-09-25] MEDS ORDERED: [UNRECOGNIZED DRUG - CODE] PO (13:05)
[2016-09-25 13:43] VITALS: BP 134/91; PULSE 73; RESP 20; O2SAT 96
--- NOTE | 2016-09-25 14:12 | NUR ---
Social Work: Discharge Data: Pt is on day 3 of hospitalization. EMR reviewed, pt discussed in multidisciplinary rounds. MD states pt likely to stay in hospital until hospice can open but that they will assess pt today and speak with family to determine. HOST/HOSTESS GROUND confirmed with [facility]osp[facility] of the that pt's equipment was delivered today and that they will open with pt on Wednesday between 10-11AM. MD met with pt and family who is comfortable taking pt home today with the equipment delivered and now that pt is doing slightly better than previous days. D/C orders are in. No further d/c planning needs identified at this time. HOST/HOSTESS GROUND will continue to follow if needs arise. Assessment: Pt who is independent at baseline, discharging with hospice to open on Wednesday, not currently capable of self care. Plan: Pt will d/c home via POV today with hospice to open on Wednesday between 10-11am. No further d/c planning needs identified at this time. HOST/HOSTESS GROUND will continue to follow if needs arise. DAVI Hoyt
--- NOTE | 2016-09-25 14:32 | PCM.DC.MED ---
Discharge Summary Date of Service Sep 25, 2016 Dates of Hospitalization Date of Hospital Admission Sep 22, 2016 at 14:46 Date of Discharge: Sep 25, 2016 Providers: Admitting Physician: Eron Roper MD Primary Care Physician: Rio Harrison MD Attending Physician: Zora Gagnon MD Diagnosis at Time of Discharge Diagnosis at Time of Discharge Acute encephalopathy secondary glioblastoma responsive to increased dexamethasone Consultations Hospice Procedures XRay, CTs & MRIs Brain CT Diffuse widespread, poorly defined hyperdensities in the region of the splenium of the corpus callosum, and posterior temporal occipital lobes. This could reflect post therapy changes and calcifications given the appearance of the gradient echo sequences on the prior MR studies however without more recent head CT comparison studies, acute hemorrhage or hemorrhagic tumor cannot be excluded. Recommend close clinical correlation and at minimum followup with repeat head CT in 6 hours (shorter if neurological examination warrants). Findings were immediately and personally telephoned to Dr. Laboy in the emergency department 09/22/16 1152 hrs. Dictated by: Tr Davison M.D. on 09/22/2016 at 11:38 Brain MRI PROCEDURE: MRI BRAIN WITH AND WITHOUT CONTRAST ([id number]) INDICATIONS: ALOC, known Glioblastoma TECHNIQUE: Noncontrast axial T1 spin echo, axial T2 fast spin echo, sagittal and axial FLAIR, coronal T2 fast spin echo, axial gradient echo, axial diffusion and ADC through the brain. After the administration of contrast, axial and coronal T1 spin echo with fat saturation through the brain. COMPARISON: [facility], MR, MR BRAIN W&WO CON, 07/24/2016, 8:26. [facility], MR, MR BRAIN W&WO CON, 05/14/2016, 12:52. [facility], MR, MR BRAIN W&WO CON, 09/18/2016, 11:17. FINDINGS: Image quality: There are motion artifacts. CSF spaces: Basal cisterns are patent. No extra-axial fluid collections. Ventricles are normal in size and shape. Brain: Again noted is an irregular mass with heterogeneous enhancement involving the splenium of corpus callosum and adjacent parietal occipital lobes , unchanged in size. There is susceptibility artifacts within the mass, consistent with intratumoral bleed or constipation. There is vasogenic edema within and adjacent to the mass. There is marked white matter T2 hyperintensity in the posterior parietal lobes bilaterally, likely related to post radiation change. No midline shift. There is mild cerebral volume loss for age. There is mild periventricular white matter chronic small vessel ischemic change. The brainstem appears normal. Diffusion-weighted images demonstrate no acute ischemic insults. No chronic ischemic insults. Normal intravascular flow voids are present. Skull and face: Calvarial marrow is normal in signal. Orbits appear normal. Sinuses: Sinuses appear clear. Fluid in the right mastoids has decreased. There is mucus retention material or in the left maxillary and sphenoid sinuses. IMPRESSION: 1. Stable appearance of an irregular mass with heterogeneous enhancement involving the splenium of corpus callosum and adjacent parieto-occipital lobes with vasogenic edema and intratumoral bleed or calcification. The findings are consistent with known glioblastoma. 2. No acute intracranial abnormalities. 3. Mild cerebral volume loss and periventricular white matter chronic small vessel ischemic changes. There is also likely post radiation change in the posterior white matter. 4. Mucous retention material or polyps in the left maxillary and sphenoid sinuses. Dictated by: Getachwe Rivera M.D. on 09/22/2016 at 14:07 Approved by: Getachew Rivera M.D. on 09/22/2016 at 14:23 PROCEDURE: X-RAY CHEST ONE VIEW, PORTABLE ([id number]) INDICATIONS: pneumonia TECHNIQUE: One view of the chest was acquired. COMPARISON: None. FINDINGS: Surgical changes and devices: None. Lungs and pleura: No pleural effusions or pneumothorax. Lungs are clear. Mediastinum: Mediastinal contours appear normal. Heart size is normal. Bones and chest wall: No suspicious bony lesions. Overlying soft tissues appear unremarkable. IMPRESSION: Reduced inspiratory volume, heart size within normal limits for this is taken into account. There is stranding at the retrocardiac left lower lobe but this is in the setting of potential for atelectasis. Pneumonia has not been entirely excluded but is considered relatively unlikely at the left lung base. Dictated by: Tu Guevara M.D. on 09/22/2016 at 18:15 Approved by: Tu Guevara M.D. 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 Patient is seen by our oncology group and has completed IV chemotherapy and radiation, as currently on Temodar. Per the patient's gives the whole history, the patient has had a steady neurological decline over the last 3 weeks with increase nausea and vomiting and dry heaves. She states confusion worsened yesterday and has been unable to follow directions since that time. Patient is usually able to walk with a walker but is currently not manageable to ambulate. Patient was seen yesterday at his oncologist office and was told that the tumor stable. He was given fluids and Zofran for nausea and vomiting at that time as did not seem to work for the patient's . On the way home he began vomiting again. denies that the patient's having fever or chills, complaining of belly or chest pain, or any associated headache or shortness of breath. [facility] emergency department could not exclude an acute hemorrhage or hemorrhagic tumor requested follow-up MRI which was done and is currently pending. Patient does have a leukocytosis with a left shift. Hospital Course 51-year-old male with 3 weeks of declining function who is currently unable to follow commands or oriented to himself, present with persistent nausea and vomiting and concern for increased intra-cranial pressure with pending MRI. Acute confusion in the setting of glioblastoma; present on admission; ongoing -Per oncology note, tumor appears stable and the patient is on Temodar; could be due to increased cerebral edema or possibly post-ictal -Home health was set up by oncology to help with home care -Dr. Spicer spoke with the oncology office and updated them on current condition; they recommended methylprednisone -MRI is pending at CT was indeterminate for possible hemorrhage -If MRI is positive and prednisone is ineffective for nonhemorrhagic cerebral edema, recommended hospice. -Family does not currently want to discuss with palliative -Given methylprednisone in ED and as per oncology will increase dexamethasone to 4 mg IV every 6 hours -Patient's clinical status gradually improved starting about a day and a half after starting IV high-dose dexamethasone -Hospice was consult in and saw patient and family yesterday and will be able to see the patient at his house on Wednesday -Durable medical equipment has arrived this morning at their house -After discussions with patient and family wished to go home today as he is stable enough until hospice arrived on Wednesday -We will continue with high-dose oral dexamethasone at this time -Patient has over the past day had no nausea or vomiting or headache Leukocytosis with confusion; present on admission; ongoing -Presents with WBC > 12k; no other signs of sepsis -No reported fevers, cough, chills; does have ?new incontinence -UA ordered and is still pending -Procalcitonin was normal -CXR and reveals most likely left lower lobe atelectasis Nausea/vomiting; present on admission; ongoing -Chronic issue that seems to flare up; could be related to chemo or to increased cerebral pressure; -Zofran did not work well -Compazine for control and is doing better with Compazine and will send home on by mouth or per rectum dosing if needed Anion gap metabolic acidosis; present on admission; ongoing -Could be due to developing sepsis or lactic acidosis, among others -wbc mildly elevated -Procal normal -Lactic acid was normal -see above for leukocytosis Diabetes mellitus; present on admission; ongoing -hold metformin -diabetic diet Hypertension; present on admission; ongoing -We will hold his antihypertensive medication at this time DNR/I, comfort care Exam Vital Signs (Last) Date Time Temp Pulse Resp B/P Pulse Ox O2 Delivery O2 Flow Rate FiO2 09/25/16 13:43 36.5 73 20 134/91 96 Room Air Exam Constitutional: Middle-aged male in no acute distress Head: Normocephalic and traumatic Chest: Clear to auscultation Cor: Regular rate and rhythm S1-S2 without murmur Abdomen: Soft nontender bowel sounds present Extremities: No pedal edema Neuro: He is alert oriented 3, motor strength appears intact bilaterally Skin: No rashes Psych: Mood and affect are appropriate Test 09/22/16 10:22 09/22/16 10:35 09/22/16 12:40 09/22/16 18:20 Prothrombin Time 10.4sec (8.1-12.5) Prothromb Time International Ratio 0.97ratio Procalcitonin 0.06ng/mL (0.00-0.08) Thyroid Stimulating Hormone (TSH) 1.130uIU/mL (0.450-4.500) Ammonia 24ug/dL (18-53) Lactic Acid Level 0.9mmol/L (0.4-2.0) Test 09/24/16 10:40 White Blood Count 8.8th/mm3 (3.8-10.1) Red Blood Count 4.53mil/mm3 (4.40-5.80) Hemoglobin 14.0g/dL (13.8-17.2) Hematocrit 41.6% (41.0-50.0) Mean Corpuscular Volume 91.8fL (81-100) Mean Corpuscular Hemoglobin 30.9pg (27.0-35.0) Mean Corpuscular Hemoglobin Concent 33.7% (32.0-37.0) Red Cell Distribution Width 12.8% (12.3-15.4) Platelet Count 351bil/L (150-400) Neutrophils (%) (Auto) 87.1% (40-74) Lymphocytes (%) (Auto) 4.9% (14-46) Monocytes (%) (Auto) 5.9% (4-12) Eosinophils (%) (Auto) 0% (0-5) Basophils (%) (Auto) 0.1% (0-3) Sodium Level 134mEq/L (134-144) Potassium Level 4.9mEq/L (3.5-5.2) Chloride Level 98mEq/L (97-108) Carbon Dioxide Level 17mmol/L (18-29) Blood Urea Nitrogen 13mg/dL (6-24) Creatinine 0.86mg/dL (0.76-1.27) Estimat Glomerular Filtration Rate 99mL/min (>59) Glucose Level 128mg/dL (60-99) Calcium Level 9.7mg/dL (8.5-10.1) Magnesium Level 2.3mg/dL (1.6-2.6) Total Bilirubin 0.3mg/dL (0.0-1.2) Aspartate Amino Transf (AST/SGOT) 52U/L (0-50) Alanine Aminotransferase (ALT/SGPT) 85U/L (0-44) Alkaline Phosphatase 58U/L (25-150) Total Protein 6.9g/dL (6.4-8.4) Albumin 4.1g/dL (3.4-5.0) Discharge Medications Discharge Medications Dexamethasone (Dexamethasone) 1 Mg Tab 4 MG PO QID Prescribed by: ZORA GAGNON MD Ondansetron (Ondansetron) 4 Mg Tablet 4 MG PO q4hrs prn (Reported) Pantoprazole DR (Pantoprazole DR) 40 Mg Tablet.dr 40 MG PO DAILY (Reported) Sertraline HCl (Zoloft) 50 Mg Tablet 50 MG PO DAILY (Reported) As needed Acetaminophen (Acetaminophen) 325 Mg Tablet 650 MG PO Q4H PRN PRN For Pain ( Reported) Alprazolam ODT (Alprazolam ODT) 0.5 Mg Tab.rapdis 0.5 MG PO HS PRN PRN For Anxiety Prescribed by: ZORA GAGNON MD Prochlorperazine Maleate (Compazine) 10 Mg Tablet 10 MG PO Q6H PRN PRN For Nausea Prescribed by: ZORA GAGNON MD Prochlorperazine Maleate (Compazine Suppository) 25 Mg Supp.rect 25 MG RC Q8 PRN PRN For Nausea/Vomiting Prescribed by: ZORA GAGNON MD Followup Plan Disposition: Home with hospice Discharge Diet: Other (As tolertaed with mechanical soft foods,cut foods) Follow-up Provider: Fili Rice MD Follow-up with PCP in: Other (as needed and previously recommended) Time spent Greater than 30 minutes was spent in preparation of discharge with greater than 50% of that time dedicated to patient counseling and coordination of care. copies to: Fili Rice MD, Cheryl A MD Sep 25, 2016 14:32
--- NOTE | 2016-09-25 15:17 | NUR ---
Discharge All personal belongings given patient's and other family members. Discharge instructions explained to who is at bedside who verbalizes understanding and agrees to plan of care. 1 persona assist from bed to WC. Brought down to personal car. IV removed prior by floor nurse.
== END 2016-09-25 14:15 | disposition hospice, home (50) | DRG 70 ==
LOC: SED 10:22 → MPC 14:46
PROVIDERS: ADMIT Internal Medicine; ATTEND Specialist
DX: G93.40 Encephalopathy, unspecified (principal); G93.6 Cerebral edema; C71.0 Malignant neoplasm of cerebrum, except lobes and ventricles; R29.6 Repeated falls; E11.9 Type 2 diabetes mellitus without complications; I10 Essential (primary) hypertension; Z66 Do not resuscitate; Z79.84 Long term (current) use of oral hypoglycemic drugs